=== PATIENT | male | born 1935 | race Caucasian/White ===

== ENCOUNTER 2017-10-11 11:18 | Observation (INO) | payer OTHER, MEDICARE ==
[~2017-10-11] VITALS: Ht 165.1 cm; Wt 75.0 kg
[~2017-10-11 11:18] MED LIST: ALLOPURINOL300 M1 PO; BACTRIM DS 8001 TAB PO; CHILDREN'S ASPI81 M1 PO; CIPROFLOXACIN500 MG PO; COREG12.5 M1 PO; CRANBERRY CONC500 MG PO; DIOVAN80 MG PO; FISH OIL 1,2001 EACH PO; FISH OIL CONC1000 MG PO; FLOMAX(MONOGRA0.4 MG PO; FOLIC ACID0.8 M2 PO; FUROSEMIDE20 MG PO; HYDRALAZINE HCL25 MG PO; IMDUR60 MG PO; LASIX20 M1 PO; LIPITOR40 M1 PO; PLAVIX75 M1 PO
[2017-10-11] MEDS ORDERED: ENTRESTO 49 MG1 EACH PO (11:45)
[2017-10-11] MEDS ORDERED: PREDNISONE5 M1 PO (11:46)
--- NOTE | 2017-10-11 11:46 | ED GENERAL ADULT ---
History of Present Illness General Chief Complaint: Chest Pain Stated Complaint: CHEST PRESSURE, LIGHT HEADEDNESS Source: patient, family Exam Limitations: no limitations Vital Signs & Intake/Output Vital Signs & Intake/Output Vital Signs Date Time Temp Pulse Resp B/P B/P Pulse O2 O2 Flow FiO2 Mean Ox Delivery Rate 10/11 1228 99.0 71 20 126/75 96 Room Air 10/11 1127 98.3 77 15 163/83 98 Room Air Room Air Allergies Coded Allergies: NO KNOWN ALLERGIES (04/10/11) Reconcile Medications Allopurinol 300 MG TABLET 1 TAB PO QPM GOUT (Reported) Aspirin (Children's Aspirin) 81 MG TAB.CHEW 1 TAB PO DAILY HEART HEALTH ( Reported) Atorvastatin Calcium (Lipitor) 40 MG TABLET 1 TAB PO QPM CHOLESTEROL ( Reported) Carvedilol (Coreg) 12.5 MG TABLET 1 TAB PO BID HTN (Reported) Clopidogrel Bisulfate (Plavix) 75 MG TABLET 1 TAB PO DAILY BLOOD THINNER ( Reported) Fish Oil/Dha/Epa (Fish Oil 1,200 MG Fish Oil) 1,200 MG-144 MG-216 MG CAPSULE 1 CAP PO DAILY SUPPLEMENT (Reported) Folic Acid 0.8 MG TABLET 1 TAB PO QPM SUPPLEMENT (Reported) Furosemide (Lasix) 20 MG TABLET 1 TAB PO DAILY WATER RETENTION (Reported) Prednisone 5 MG TABLET 1 TAB PO DAILY PRN GOUT (Reported) Sacubitril/Valsartan (Entresto 49 MG-51 MG Tablet) 49 MG-51 MG TABLET 1 TAB PO BID HEART (Reported) Tamsulosin HCl 0.4 MG CAP.ER.24H 1 CAP PO DAILY PROSTATE (Reported) Triage Note: PT TO ED WITH DAUGHTER FOR C/C OF MID CHEST PRESSURE, WEAKNESS, BILATERAL CALF CRAMPING AND SOB SINCE YESTERDAY. 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 PT REPORTS HE HAS BEEN UNDER A LOT OF STRESS LATELY. Triage Nurses Notes Reviewed? yes HPI: Patient is an 82-year-old male who presents today with chest pain. He has history of AK with PCI and stents, and unfortunately experienced the passing away of his yesterday, understandably causing him much stress and bereavement. He currently states that his chest pain feels similar to his previous AK. Reports like heaviness and dyspnea as well, ECG largely unchanged from previous. Past History Travel History Traveled to [place] past 21 day No Medical History Any Pertinent Medical History? see below for history Neurological: NONE EENT: NONE Cardiovascular: hyperlipidemia, myocardial infarction, CARDIAC STENTS AICD L CHEST WALL History of MRSA: No History of VRE: No History of CDIFF: No Pneumonia Vaccine: 11/08/11 Influenza Vaccine: 11/07/13 Surgical History Surgical History: none Psychosocial History Who do you live with Spouse Services at Home None What is your primary language Mosotho Tobacco Use: Quit >30 days ago Family History Family History, If Any: MOTHER, , Age 60+; Cause: Stroke. FHx: stroke FATHER, , Age 60+; Cause: Stroke. FHx: stroke Relation not specified for: *No pertinent family history Hx Contributory? Yes Review of Systems Review of Systems Constitutional: Reports: see HPI. Denies: fever, malaise, weakness. Cardiovascular: Reports: chest pain. Denies: edema, orthopena, palpitations, peripheral edema, syncope. GI: Denies: abdominal pain, nausea, vomiting. All Other Systems: Reviewed and Negative Physical Exam Physical Exam General Appearance: well developed/nourished, no apparent distress, alert, awake , anxious Comments: HEENT: Inspection of the head reveals a normocephalic cranium with no signs of trauma. Ophtho: Extraocular muscles are intact and pupils are equal and reactive to light bilaterally with no afferent pupillary defect. The sclera are noninjected , and there is no obvious discharge. Neck: The trachea is midline, there is no obvious asymmetry or mass over the thyroid, and there is no midline cervical spine tenderness Respiratory: The lungs are clear and equal to auscultation bilaterally without wheezes, rales, or rhonchi. The patient exhibits no signs of labored breathing. Cardiac: Active chest pain. Regular rhythm and non-tachycardic without appreciable murmurs on auscultation. No obvious JVD. GI: Examination of the abdomen reveals no significant focal tenderness in any of the four quadrants. There is negative Vides's sign, negative McBurney's point tenderness, negative Evan sign, negative Mariscal-De Los Santos sign, and no signs of peritonitis whatsoever on percussion or deep palpation. The skin is intact with no sign of trauma or infection. : Deferred Neuro: The patient is oriented to person, place, time, and situation, with no obvious focal motor deficits. There were no sensory deficits, and the patient exhibit purposeful movement of all 4 extremities. Cranial nerves II through XII are intact, and gait is normal. Behavioral: Bereavement Dermatologic: Dermatologic examination reveals no diffuse rashes or exanthems, no petechiae, no ecchymoses, and no other signs of erythema or infection. Core Measures ACS in differential dx? Yes CVA/TIA Diagnosis: No Sepsis Present: No Sepsis Focused Exam Completed? No Progress Differential Diagnoses I considered the following diagnoses in my evaluation of the patient: STEMI, non -STEMI, acute coronary syndrome, dissection, PE Plan of Care: Orders Procedure Date/time Status TROPONIN LEVEL 10/11 1126 Complete PROTHROMBIN TIME 10/11 1126 Complete D-DIMER 10/11 1126 Complete COMPREHENSIVE METABOLIC PANEL 10/11 1126 Complete CBC WITHOUT DIFFERENTIAL 10/11 1126 Complete EKG 10/11 1124 Active Laboratory Tests 10/11/17 1130: Anion Gap 8, Estimated GFR 58 L, BUN/Creatinine Ratio 15.8, Glucose 138 H, Calcium 9.5, Total Bilirubin 1.0, AST 24, ALT 34, Alkaline Phosphatase 52, Troponin I < 0.01, Total Protein 6.8, Albumin 4.2, Globulin 2.6, Albumin/ Globulin Ratio 1.6, PT 12.6 H, INR 1.15, D-Dimer High Sensitivty < 200, CBC w Diff NO MAN DIFF REQ, RBC 4.39 L, MCV 94.5 H, MCH 32.8 H, MCHC 34.7, RDW 14.8 H, MPV 7.9, Gran % 72.4, Lymphocytes % 17.2 L, Monocytes % 8.6, Eosinophils % 1.5, Basophils % 0.3, Absolute Granulocytes 6.5, Absolute Lymphocytes 1.6, Absolute Monocytes 0.8 H, Absolute Eosinophils 0.1, Absolute Basophils 0 Initial ED EKG: ECG performed at 1127, read by me at 11:30 AM, atrial sensed and ventricularly paced rhythm without ischemic changes, no significant change as compared to Jan 06 2014. Comments: Patient with multiple stents and acute chest pain today after burying his yesterday presented for continued pain. Troponin negative, however given his high-risk status I feel that it is important he be hospitalized. Admitted in stable condition hemodynamically. Departure Departure Time of Disposition: 1406 Disposition: STILL A PATIENT Condition: Stable Clinical Impression Primary Impression: Chest pain Qualifiers: Chest pain type: unspecified Qualified Code: R07.9 - Chest pain, unspecified Referrals: Hieu Jackson MD (PCP/Family) Departure Forms: Customer Survey General Discharge Information Observation Note Spoke With: Rizwan Nieves MD Physician Advisor Notified: SILAS BATES DO Place Patient In: Non-ED OBS Care Area Rationale for Observation: My rational for observation is as follows Patient with multiple stents presents today for chest pain. He had emotional trauma yesterday after the of his , Takatsubo's cardiomyopathy is a possibility as well. His troponin was negative here but I feel that he requires hospitalization for troponin trending, repeat vital signs checks, cardiology consultation, and further monitoring. Critical Care Note Critical Care Note Critical Care Time: non-applicable ED Attending Observation Initial Observation Note: I have seen and personally examined SHERYL POLANCO on 10/11/17 at 1407. I agree with the current emergency department documentation. The disposition (admission or discharge) is uncertain at this time, he needs a period of observation for the following reason(s): The ED Nurse caring for this patient has been personally informed as to what the patient is being observed for.
[2017-10-11 11:49] LABS: ABSOLUTE BASOPHIL COUNT 0 /CUMM (0.0-0.2); ABSOLUTE EOSINOPHIL COUNT 0.1 /CUMM (0.0-0.7); ABSOLUTE GRANULOCYTE CT 6.5 /CUMM (1.4-6.5); ABSOLUTE LYMPH COUNT 1.6 /CUMM (1.2-3.4); ABSOLUTE MONOCYTE COUNT 0.8 /CUMM (0.10-0.60); BASOPHIL % 0.3 % (0.0-2.0); EOSINOPHIL % 1.5 % (0-5); GRANULOCYTE % 72.4 % (42.2-75.2); HEMATOCRIT 41.5 % (42-52); MEAN CORPUSCULAR HGB 32.8 PG (27.0-31.0); MEAN CORPUSCULAR HGB CONC 34.7 G/DL (33.0-37.0); MEAN CORPUSCULAR VOLUME 94.5 FL (80.0-94.0); MEAN PLATELET VOLUME 7.9 FL (7.4-10.4); PLATELET COUNT 237 /CUMM (130-400); RBC DISTRIBUTION WIDTH 14.8 % (11.5-14.5); RED BLOOD CELL CT 4.39 /CUMM (4.70-6.10)
[2017-10-11] MEDS ORDERED: TAMSULOSIN HCL0.4 M1 PO (11:50)
[2017-10-11 11:54] LABS: PT 12.6 SEC (9.4-12.5)
--- NOTE | 2017-10-11 13:49 | RADIOLOGY REPORT ---
EXAMINATION: XR CHEST CLINICAL INFORMATION: Shortness of breath. COMPARISON: 12/28/2013 TECHNIQUE: 2 views of the chest were obtained. FINDINGS: AICD. Normal symmetric lung volumes. No parenchymal consolidation. No pleural effusion. No pneumothorax. Cardiomediastinal silhouette and pulmonary vascularity are within normal limits. No acute osseous abnormalities. IMPRESSION: Unremarkable examination.
--- NOTE | 2017-10-11 14:49 | History & Physical ---
ThaiMegan 10/11/17 1449: General Information and HPI History of Present Illness: Sheryl Villanueva is a 78-year-old male with past medical history of coronary artery disease, myocardial infarction status post stent, pacemaker, hypertension, nephrolithiasis, and gout who came to the ED with complaints of chest pain. Patient notes his two days prior and has been under increasing stress related to the loss. Patient notes he has been having this chest pain for more than 2 months but only recently gave notice to it with it getting progressively worse since yesterday morning. Patient states his pain was 7 out of 10 this morning but is now a 1 out of 10 with no radiating symptoms. Patient states the chest pain is located in the midsternum. Patient also noted bilaeral head pressure and bilateral leg cramps. Patient also reports waking up at night recently due to sensation of difficulty breathing. Patient denied any leg swelling, fevers, chills, and fatigue. Patient occasionally drinks alcohol. Patient is a former smoker, quitting more than 10 years prior. Patient denied any illcit drug usage. Patient follows Dr. Clark (PCP) and Dr. Espinal (Cardiology) Allergies/Medications Allergies: Coded Allergies: NO KNOWN ALLERGIES (04/10/11) Home Med list Allopurinol 300 MG TABLET 1 TAB PO QPM GOUT (Reported) Aspirin (Children's Aspirin) 81 MG TAB.CHEW 1 TAB PO DAILY HEART HEALTH ( Reported) Atorvastatin Calcium (Lipitor) 40 MG TABLET 1 TAB PO QPM CHOLESTEROL ( Reported) Carvedilol (Coreg) 12.5 MG TABLET 1 TAB PO BID HTN (Reported) Clopidogrel Bisulfate (Plavix) 75 MG TABLET 1 TAB PO DAILY BLOOD THINNER ( Reported) Fish Oil/Dha/Epa (Fish Oil 1,200 MG Fish Oil) 1,200 MG-144 MG-216 MG CAPSULE 1 CAP PO DAILY SUPPLEMENT (Reported) Folic Acid 0.8 MG TABLET 1 TAB PO QPM SUPPLEMENT (Reported) Furosemide (Lasix) 20 MG TABLET 1 TAB PO DAILY WATER RETENTION (Reported) Prednisone 5 MG TABLET 1 TAB PO DAILY PRN GOUT (Reported) Sacubitril/Valsartan (Entresto 49 MG-51 MG Tablet) 49 MG-51 MG TABLET 1 TAB PO BID HEART (Reported) Tamsulosin HCl 0.4 MG CAP.ER.24H 1 CAP PO DAILY PROSTATE (Reported) Past History Travel History Traveled to [place] past 21 day No Medical History Neurological: NONE EENT: NONE Cardiovascular: hyperlipidemia, myocardial infarction, CARDIAC STENTS AICD L CHEST WALL History of MRSA: No History of VRE: No History of CDIFF: No Pneumonia Vaccine: 11/08/11 Influenza Vaccine: 11/07/13 Surgical History Surgical History: none Past Family/Social History Family History Relations & Conditions if any MOTHER, , Age 60+; Cause: Stroke. FHx: stroke FATHER, , Age 60+; Cause: Stroke. FHx: stroke Relation not specified for: *No pertinent family history Psychosocial History Services at Home: None Review of Systems Review of Systems Constitutional: Denies: chills, diaphoresis, fever. Cardiovascular: Reports: chest pain, orthopena. Denies: edema, palpitations. Respiratory: Reports: orthopnea. Denies: cough, short of breath. GI: Denies: diarrhea, nausea, vomiting. Musculoskeletal: Denies: back pain, joint pain. Skin: Denies: no symptoms. Neurological/Psychological: Denies: headache, numbness, tingling. Exam & Diagnostic Data Last 24 Hrs of Vital Signs/I&O Vital Signs Date Time Temp Pulse Resp B/P B/P Pulse O2 O2 Flow FiO2 Mean Ox Delivery Rate 10/11 1653 98.3 72 20 136/66 98 Room Air 10/11 1618 98.1 77 15 128/68 98 Room Air Room Air 10/11 1500 66 20 147/78 98 Room Air 10/11 1228 99.0 71 20 126/75 96 Room Air 10/11 1127 98.3 77 15 163/83 98 Room Air Room Air Intake & Output 10/11 1600 10/11 0800 10/11 0000 Intake Total 0 Output Total Balance 0 Intake, Oral 0 Patient 155 lb Weight Weight Reported by Patient Measurement Method Physical Exam General Appearance Alert, Oriented X3, Cooperative, No Acute Distress Skin No Rashes, No Breakdown Skin Temp/Moisture Exam: Warm/Dry HEENT Atraumatic Cardiovascular Regular Rate, Normal S1, Normal S2 Lungs Clear to Auscultation Neurological Normal Speech Extremities No Edema Assessment/Plan Assessment: CXR - Unremarkable examination 78-year-old male with past medical history of coronary artery disease, myocardial infarction status post stent, pacemaker, hypertension, nephrolithiasis, and gout who came to the ED with complaints of chest pain. Etiology in this case with a presentation of chest pain, non-radiating with no nausea/vomiting/diaphoresis that has been progressively worsening over the past few months with associated family stressors playing a role in the setting of negative first troponin level is likely related to an Acute Coronary syndome presentation. We will continue to follow EKG and Troponins and consult cardiology for their recommendations. Labs on admission: WBC 9, hemoglobin 14.4, platelet count 237, sodium 142, potassium 4.2, BUN 19, creatinine 1.2, glucose 138, troponin 0 0.01, d-dimer 200 #Chest pain, rule out ACS -Admitted to telemetry for observation and management of vitals -Every shift vital -Serial troponins and EKG -Echocardiogram -Cardiology consulted (Ismael), patient last saw his principal software architect 3-4 months prior; awaiting recs. -Nitro-Bid 0.5 mg half-inch every 6 prn #Home medications -Continue home medication including Lasix, Entresto, and Tamsulosin. -Will follow BEP in the morning and will restart patient's Allopurinol depending on lab levels FC As Ranked By This Provider Problem List: 1. Chest pain Qualifiers Chest pain type: unspecified Qualified Code: R07.9 - Chest pain, unspecified Core Measures/Misc (10/24) Acute Coronary Syndrome ACS Diagnosis: Yes Congestive Heart Failure Congestive Heart Failure Diagnosis No Cerebrovascular Accident CVA/TIA Diagnosis: No VTE (View Protocol) VTE Risk Factors Acute Medical Illness No Mechanical VTE Prophylaxis d/t N/A MechProphylax Ordered No VTE Pharm Prophylaxis d/t NA PharmProphylax ordered Sepsis (View protocol) Sepsis Present: No If YES complete Sepsis Event Note If YES complete Sepsis Event Note [facility] 1504: General Information and HPI Statement: I have seen and personally examined SHERRISHERYL and documented this H&P. The patient is a 82 year old M who presented with a patient stated chief complaint of []. Core Measures/Misc (10/24) Sepsis (View protocol) If YES complete Sepsis Event Note If YES complete Sepsis Event Note Resident Review Statement Other Findings: 78-year-old male with past medical history of coronary artery disease, myocardial infarction status post stent, pacemaker, hypertension, nephrolithiasis, gout came to [place] [facility] with complaints of chest pain since morning. Apparently patient's 2 days ago and since then patient has been having chest pressure of 7 x 10 in severity with no radiation. Today morning patient felt his chest pressure has worsened and hence he brought himself to the ED. Upon interviewing he said that he has this chest pressure for the past 2 months on and off. He also endorses having shortness of breath on and off with bilateral leg cramps and head pressure. He denies orthopnea, paroxysmal nocturnal dyspnea, dizziness, palpitations, vertigo, diaphoresis, nausea, vomiting, recent change in medication, recent infection recent travel. Patient has been having decreased sleep and on and off epigastric pain for the past few days. Patient saw his principal software architect Dr. Harrison Villalta 3 months ago and got an echocardiogram done. Patient was last admitted for urinary tract infection and syncope in 2013 and during that time he was advised 24 hour Holter monitoring. But the patient does not remember any 24 hour monitor done in the past. Patient was never admitted in any of the hospital in the past 4 years. Past surgical history-coronary artery disease-stent placed Social history-past smoker quit more than 10 years ago Social drinker. No illicit drug use Allergies-none Primary care physician-Dr. clark admission vitals Temperature 99, pulse rate 71, respiratory rate 20, blood pressure 126/75, saturation 96 at room air. Admission labs WBC 9, hemoglobin 14.4, platelet count 237, sodium 142, potassium 4.2, BUN 19, creatinine 1.2, glucose 138, troponin 0 0.01, d-dimer 200 Chest x-ray Unremarkable examination Patient home medication Allopurinol 300 daily Aspirin 81 daily Atorvastatin 40 daily Coreg 12.5 mg twice daily Plavix 75 mg daily Fish oil Folic acid Lasix 20 daily Prednisone 5 mg daily as needed Interesto 49-51 twice daily Tamsulosin Assessment and plan Chest pain-rule out ACS Observation in telemetry Every shift vital Serial troponins and EKG Echocardiogram Cardiology consult Nitro-Bid half-inch every 6 as needed. We will continue all his home medication including Lasix and entresto. Rizwan Nieves MD 10/11/17 1636: Core Measures/Misc (10/24) Sepsis (View protocol) If YES complete Sepsis Event Note If YES complete Sepsis Event Note Attending MD Review Statement Attending Statement Attending MD Statement: examined this patient, discuss w/resident/PA/TRACTOR OPERATOR BATTERY, agreed w/resident/PA/TRACTOR OPERATOR BATTERY, reviewed EMR data (avail) Attending Assessment/Plan: 82M PMH ischemic cardiomyopathy, coronary artery disease s/p NM with PCI and AICD placement in 2010, prior cardiac arrest, arthritis, HTN,HLD, nephrolithiasis presenting with acute onset of left sided chest pressure. Patient has been under a lot of stress, as his yesterday. Today, he experienced a sensation of chest pressure that he described as someone sitting on his chest, left sided, non-radiating, associated with SOB but not with palpitations or lightheadedness. The sensation was dissimilar to when he had his NM. That time was much worse. He was sitting when it started, and it has resolved now. He has no complaints at this time and feels well overall. EKG NSR without acute changes, troponin and labs negative, CXR negative. 1. Chest pain at rest Plan - Observation in telemetry - Serial cardiac enzymes and EKG - Cardiology consult - Echocardiogram - Check TSH - Continue home medications - DVT PPx
[2017-10-11 16:53] VITALS: BP 136/66
[2017-10-11 22:42] VITALS: BP 112/58
[2017-10-12 06:56] VITALS: BP 113/60
--- NOTE | 2017-10-12 07:46 | PN- Housestaff ---
See Addendum Subjective Follow-up For: Chest pain Subjective: Afebrile overnight. Patient is seen and examined this morning. Patient states he feels better today with no complaints of chest pain, shortness of breath, palpitaitons, fevers, chills, and fatigue. Patient otherwise has no new concerns today. Review of Systems Constitutional: Reports: see HPI. Objective Last 24 Hrs of Vital Signs/I&O Vital Signs Date Time Temp Pulse Resp B/P B/P Pulse O2 O2 Flow FiO2 Mean Ox Delivery Rate 10/12 0656 97.0 73 20 113/60 96 Room Air 10/12 0000 95 Room Air 10/11 2242 98.4 77 18 112/58 95 Room Air 10/11 2038 74 112/58 10/11 2038 74 112/58 10/11 1653 98.3 72 20 136/66 98 Room Air 10/11 1618 98.1 77 15 128/68 98 Room Air Room Air 10/11 1500 66 20 147/78 98 Room Air 10/11 1228 99.0 71 20 126/75 96 Room Air 10/11 1127 98.3 77 15 163/83 98 Room Air Room Air Intake & Output 10/12 1600 /05 0800 09/05 0000 Intake Total 120 450 Output Total 350 Balance 120 100 Intake, IV 0 Intake, Oral 120 450 Output, Urine 350 Patient 165 lb Weight Physical Exam General Appearance: Alert, Oriented X3, Cooperative, No Acute Distress Skin: No Rashes, No Breakdown HEENT: Atraumatic Neck: Supple, No JVD Cardiovascular: Regular Rate, Normal S1, Normal S2 Lungs: Clear to Auscultation Neurological: Normal Speech Extremities: No Edema, Normal Pulses Assessment/Plan Assessment: CXR - Unremarkable examination 78-year-old male with past medical history of coronary artery disease, myocardial infarction status post stent, pacemaker, hypertension, nephrolithiasis, and gout who came to the ED with complaints of chest pain. Etiology in this case with a presentation of chest pain, non-radiating with no nausea/vomiting/diaphoresis that has been progressively worsening over the past few months with associated family stressors playing a role in the setting of negative first troponin level is likely related to an Acute Coronary syndome presentation. We will continue to follow EKG and Troponins and consult cardiology for their recommendations. Labs on admission: WBC 9, hemoglobin 14.4, platelet count 237, sodium 142, potassium 4.2, BUN 19, creatinine 1.2, glucose 138, troponin 0 0.01, d-dimer 200 #Chest pain, rule out ACS -Patient is in observation currently to assess and manage his vitals -Every shift vital -Serial troponins and EKG -Echocardiogram -Cardiology consulted (Ismael), patient last saw his integration lead 3-4 months prior; patient will have follow up with cardiology outpatient as they determine pt. currently stable and in no need for additional inpatient cardiac testing; if required, outpatient stress testing will be scheduled with cardiology office; patient to follow up outpatient office cardiology within one week of discharge -Nitro-Bid 0.5 mg half-inch every 6 prn #Home medications -Continue home medication including Lasix, Entresto, and Tamsulosin. -Will follow BEP in the morning and will restart patient's Allopurinol depending on lab levels FC Problem List: 1. Chest pain Pain Ratin Pain Location: na Pain Goal: Remain pain free Pain Plan: prn meds Tomorrow's Labs & Rationales: routine
[2017-10-12 08:39] VITALS: BP 113/60
--- NOTE | 2017-10-12 09:47 | ECHOCARDIOGRAM REPORT ---
SHERYL POLANCO Age: 82 : 1935 Gender: M Exam Date: 10/11/2017 17:14 Exam Location: [address] Ht (in): 65 Wt (lb): 155 BSA: 1.81 BP: 128 / 68 Ordering Physician: Marya Quinones MD Referring Physician: Harrison Guevara MD Technologist: Sarah Hernandez [facility] Room Number: 188 Indications: Chest pain Rhythm: Technical Quality: Fair FINDINGS Left Ventricle Left ventricular cavity size normal. Left ventricular wall thickness mildly increased. There is severe inferior/inferolateral hypokinesis. Left ventricular ejection fraction is estimated at 35- 40 %. Abnormal relaxation filling pattern of the left ventricle for age (stage 1 diastolic dysfunction). Right Ventricle Catheter/pacemaker wire in the right ventricular cavity. Normal right ventricular size and function. Right Atrium Normal right atrial size. Left Atrium Left atrial size at the upper limits of normal. Mitral Valve Mild mitral annular calcification. Mild mitral regurgitation. Aortic Valve Trileaflet aortic valve. No aortic stenosis. Aortic sclerosis. Mild- to-moderate aortic regurgitation. Tricuspid Valve Structurally normal tricuspid valve. Trace tricuspid regurgitation. Unable to estimate the right ventricular systolic pressure. Pulmonic Valve Pulmonic valve not well visualized, grossly normal. Trace pulmonic regurgitation. Pericardium No pericardial effusion. Great Vessels Normal size aortic root. CONCLUSIONS Left ventricular cavity size normal. Left ventricular wall thickness mildly increased. There is severe inferior/inferolateral hypokinesis. Left ventricular ejection fraction is estimated at 35- 40 %. Abnormal relaxation filling pattern of the left ventricle for age (stage 1 diastolic dysfunction). Catheter/pacemaker wire in the right ventricular cavity. Normal right ventricular size and function. Left atrial size at the upper limits of normal. [id number] aortic regurgitation. No pericardial effusion. Fabián Ramsey M.D. (Electronically Signed) Final Date: 12 October 2017 09:42 MEASUREMENTS (Male / Female) Normal Values 2D ECHO LV Diastolic Diameter PLAX 4.2 cm 4.2 - 5.9 / 3.9 - 5.3 cm LV Systolic Diameter PLAX 3.1 cm 2.1 - 4.0 cm LV Fractional Shortening PLAX 26.2 % 25 - 46 % LV Ejection Fraction 2D Teich 51.7 % IVS Diastolic Thickness 1.4 cm LVPW Diastolic Thickness 1.4 cm LV Relative Wall Thickness 0.7 RV Internal Dim ED PLAX 3.3 cm 1.9 - 3.8 cm LVOT Diameter 1.7 cm Aortic Root Diameter 3.0 cm LA Volume 36.0 cm 18 - 58 / 22 - 52 cm Ascending Aorta Diameter 3.6 cm DOPPLER AV Peak Velocity 166.0 cm/s AV Peak Gradient 11.0 mmHg AV Mean Velocity 113.0 cm/s AV Mean Gradient 6.0 mmHg AV Velocity Time Integral 33.3 cm LVOT Peak Velocity 90.2 cm/s LVOT Peak Gradient 3.3 mmHg LVOT Mean Velocity 63.2 cm/s LVOT Mean Gradient 2.0 mmHg LVOT Velocity Time Integral 20.7 cm LVOT Stroke Volume 47.0 cm AV Area Cont Eq vti 1.4 cm AV Area Cont Eq pk 1.2 cm MV Peak Velocity 92.6 cm/s MV Peak Gradient 3.4 mmHg MV Mean Velocity 51.7 cm/s MV Mean Gradient 1.0 mmHg Mitral E Point Velocity 53.8 cm/s Mitral A Point Velocity 82.4 cm/s Mitral E to A Ratio 0.7 MV PHT Velocity 60.8 cm/s MV Deceleration Maury 168.0 cm/s MV Pressure Half Time 108.6 ms MV Area PHT 2.0 cm MV Deceleration Time 378.0 ms TR Peak Velocity 228.0 cm/s TR Peak Gradient 20.8 mmHg Right Atrial Pressure 5.0 mmHg Pulmonary Artery Systolic Pressure 25.8 mmHg Right Ventricular Systolic Pressure 25.8 mmHg PV Peak Velocity 120.0 cm/s PV Peak Gradient 5.8 mmHg PV Mean Velocity 85.5 cm/s PV Mean Gradient 3.0 mmHg PV Velocity Time Integral 23.2 cm LV E' Lateral Velocity 8.9 cm/s Mitral E to LV E' Lateral Ratio 6.1 LV E' Septal Velocity 5.2 cm/s Mitral E to LV E' Septal Ratio 10.4
--- NOTE | 2017-10-12 09:49 | Patient Discharge Instructions ---
Discharge Instructions General Discharge Information You were seen/treated for: Chest pain You had these procedures: CXR ECG Watch for these problems: If you experience any worsening chest pain, palpitations, and/or shortness of breath please follow up with PCP. Special Instructions: Please follow up with PCP within one week. Please follow up with your dial polisher within one week. Depending on your cardiac symptoms the dial polisher will make the determination regarding outpatient stress testing in the future. Please continue to take your home medications. Diet Continue normal diet: Yes Recommended Diet: Regular Activity Full Activity/No Limits: No Activity Self Limited: Yes Acute Coronary Syndrome Inclusion Criteria At DC or during hospital stay patient has or had the following: ACS DIAGNOSIS Yes Discharge Core Measures Meds if any: Prescribed or Continued at Discharge Meds if any: NOT Prescribed or Continued at Discharge Congestive Heart Failure Inclusion Criteria At DC or during hospital stay patient has or had the following: CHF DIAGNOSIS No Discharge Core Measures Meds if any: Prescribed or Continued at Discharge Meds if any: NOT Prescribed or Continued at Discharge Cerebrovascular accident Inclusion Criteria At DC or during hospital stay patient has or had the following: CVA/TIA Diagnosis No Discharge Core Measures Meds if any: Prescribed or Continued at Discharge Meds if any: NOT Prescribed or Continued at Discharge Venous thromboembolism Inclusion Criteria VTE Diagnosis No VTE Type NONE VTE Confirmed by (Test) NONE Discharge Core Measures - Per Current guidelines, there needs to be overlap - treatment for the first 5 days of Warfarin therapy. - If discharged on Warfarin prior to 5 days of - overlap therapy, the patient will need to be - assessed for post discharge needs including - *Post discharge parental anticoagulation - *Warfarin and/or parental anticoagulation education - *Follow up date to check INR post discharge At least 5 days overlap therapy as Inpatient No Meds if any: Prescribed or Continued at Discharge Note: Overlap Therapy is Warfarin and Anticoagulant Meds if any: NOT Prescribed or Continued at Discharge
--- NOTE | 2017-10-12 09:52 | Discharge Summary ---
Visit Information Visit Dates Admission Date: 10/11/17 Discharge Date: 10/12/17 Hospital Course Course Attending Physician: Rizwan Nieves MD Primary Care Physician: Manuel MIRANDA,[place] Hospital Course: 78-year-old male with past medical history of coronary artery disease, myocardial infarction status post stent, pacemaker, hypertension, nephrolithiasis, and gout who came to the ED with complaints of chest pain. Etiology in this case with a presentation of chest pain, non-radiating with no nausea/vomiting/diaphoresis that has been progressively worsening over the past few months with associated family stressors playing a role in the setting of negative first troponin level is likely related to an Acute Coronary syndome presentation. We followed EKG and Troponins and consulted cardiology for their recommendations. Labs on admission: WBC 9, hemoglobin 14.4, platelet count 237, sodium 142, potassium 4.2, BUN 19, creatinine 1.2, glucose 138, troponin 0 0.01, d-dimer 200 #Chest pain, rule out ACS -Patient admitted for chest pain. Acute coronary syndrome ruled out. His 3 sets of troponins were negative. Patient did not have any EKG changes. He was seen by cardiology who suggested to continue the current management and follow- up with him as outpatient. He got an echocardiogram done this admission which showed an ejection fraction of 35-40%. Patient will be sent home with this current home medications. Allergies: Coded Allergies: NO KNOWN ALLERGIES (04/10/11) Significant Procedures: Findings - Left Ventricle Left ventricular cavity size normal. Left ventricular wall thickness mildly increased. There is severe inferior/inferolateral hypokinesis. Left ventricular ejection fraction is estimated at 35- 40 %. Abnormal relaxation filling pattern of the left ventricle for age (stage 1 diastolic dysfunction). Right Ventricle Catheter/pacemaker wire in the right ventricular cavity. Normal right ventricular size and function. Right Atrium Normal right atrial size. Left Atrium Left atrial size at the upper limits of normal. Mitral Valve Mild mitral annular calcification. Mild mitral regurgitation. Aortic Valve Trileaflet aortic valve. No aortic stenosis. Aortic sclerosis. Mild- to-moderate aortic regurgitation. Tricuspid Valve Structurally normal tricuspid valve. Trace tricuspid regurgitation. Unable to estimate the right ventricular systolic pressure. Pulmonic Valve Pulmonic valve not well visualized, grossly normal. Trace pulmonic regurgitation. Pericardium No pericardial effusion. Great Vessels Normal size aortic root. CONCLUSIONS Left ventricular cavity size normal. Left ventricular wall thickness mildly increased. There is severe inferior/inferolateral hypokinesis. Left ventricular ejection fraction is estimated at 35- 40 %. Abnormal relaxation filling pattern of the left ventricle for age (stage 1 diastolic dysfunction). Catheter/pacemaker wire in the right ventricular cavity. Normal right ventricular size and function. Left atrial size at the upper limits of normal. [id number] aortic regurgitation. No pericardial effusion. Fabián Ramsey M.D. (Electronically Signed) Final Date: 12 October 2017 09:42 MEASUREMENTS (Male / Female) Normal Values 2D ECHO LV Diastolic Diameter PLAX 4.2 cm 4.2 - 5.9 / 3.9 - 5.3 cm LV Systolic Diameter PLAX 3.1 cm 2.1 - 4.0 cm LV Fractional Shortening PLAX 26.2 % 25 - 46 % LV Ejection Fraction 2D Teich 51.7 % IVS Diastolic Thickness 1.4 cm LVPW Diastolic Thickness 1.4 cm LV Relative Wall Thickness 0.7 RV Internal Dim ED PLAX 3.3 cm 1.9 - 3.8 cm LVOT Diameter 1.7 cm Aortic Root Diameter 3.0 cm LA Volume 36.0 cm 18 - 58 / 22 - 52 cm Ascending Aorta Diameter 3.6 cm DOPPLER AV Peak Velocity 166.0 cm/s AV Peak Gradient 11.0 mmHg AV Mean Velocity 113.0 cm/s AV Mean Gradient 6.0 mmHg AV Velocity Time Integral 33.3 cm LVOT Peak Velocity 90.2 cm/s LVOT Peak Gradient 3.3 mmHg LVOT Mean Velocity 63.2 cm/s LVOT Mean Gradient 2.0 mmHg LVOT Velocity Time Integral 20.7 cm LVOT Stroke Volume 47.0 cm AV Area Cont Eq vti 1.4 cm AV Area Cont Eq pk 1.2 cm MV Peak Velocity 92.6 cm/s MV Peak Gradient 3.4 mmHg MV Mean Velocity 51.7 cm/s MV Mean Gradient 1.0 mmHg Mitral E Point Velocity 53.8 cm/s Mitral A Point Velocity 82.4 cm/s Mitral E to A Ratio 0.7 MV PHT Velocity 60.8 cm/s MV Deceleration Horry 168.0 cm/s MV Pressure Half Time 108.6 ms MV Area PHT 2.0 cm MV Deceleration Time 378.0 ms TR Peak Velocity 228.0 cm/s TR Peak Gradient 20.8 mmHg Right Atrial Pressure 5.0 mmHg Pulmonary Artery Systolic Pressure 25.8 mmHg Right Ventricular Systolic Pressure 25.8 mmHg PV Peak Velocity 120.0 cm/s PV Peak Gradient 5.8 mmHg PV Mean Velocity 85.5 cm/s PV Mean Gradient 3.0 mmHg PV Velocity Time Integral 23.2 cm LV E' Lateral Velocity 8.9 cm/s Mitral E to LV E' Lateral Ratio 6.1 LV E' Septal Velocity 5.2 cm/s Mitral E to LV E' Septal Ratio 10.4 Disposition Summary Disposition Principal Diagnosis: Chest pain Additional Diagnosis: Hx. of CAD Discharge Disposition: home or self care Discharge Instructions General Discharge Information Code Status: Full Code Patient's Diet: regular Patient's Activity: ad tej Follow-Up Instructions/Appts: Please follow up with PCP within one week. Please follow up with your rigger up within one week. Please continue to take your home medications. Medications at Discharge Discharge Medications: Continue taking these medications: Carvedilol (Coreg) 12.5 MG TABLET 1 Tablet ORAL TWICE DAILY Comments: Last Taken: 10/12/17 Time: 08:40 AM Clopidogrel Bisulfate (Plavix) 75 MG TABLET 1 Tablet ORAL DAILY Comments: Last Taken: 10/11/17 Time: 18:30 Aspirin (Children's Aspirin) 81 MG TAB.CHEW 1 Tablet ORAL DAILY Comments: Last Taken: 10/12/2017 Time: 08:40 AM Atorvastatin Calcium (Lipitor) 40 MG TABLET 1 Tablet ORAL Every night Comments: Last Taken: 10/11/17 Time: 18:30 Allopurinol (Allopurinol) 300 MG TABLET 1 Tablet ORAL Every night Comments: NOT GIVEN IN HOSPITAL. Folic Acid (Folic Acid) 0.8 MG TABLET 1 Tablet ORAL Every night Comments: NOT GIVEN IN HOSPITAL. Furosemide (Lasix) 20 MG TABLET 1 Tablet ORAL DAILY Comments: Last Taken: 10/12/17 Time: 08:40 AM Fish Oil/Dha/Epa (Fish Oil 1,200 MG Fish Oil) 1,200 MG-144 MG-216 MG CAPSULE 1 Capsule ORAL DAILY Comments: NOT GIVEN IN HOSPITAL. Sacubitril/Valsartan (Entresto 49 MG-51 MG Tablet) 49 MG-51 MG TABLET 1 Tablet ORAL TWICE DAILY Comments: Last Taken: 10/12/17 Time: 08:40 AM Prednisone (Prednisone) 5 MG TABLET 1 Tablet ORAL DAILY as needed for GOUT Comments: NOT GIVEN IN HOSPITAL. Tamsulosin HCl (Tamsulosin HCl) 0.4 MG CAP.ER.24H 1 Capsule ORAL DAILY Comments: Last Taken: 10/12/17 Time: 08:40 AM Copies To: Manuel MIRANDA,Hieu Lopez MD Review Statement Documenting Attending: Rizwan Nieves MD
--- NOTE | 2017-10-12 11:05 | Cons- Cardiology ---
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 Ferreira, systolic congestive heart failure, hypertension, and nephrolithiasis who presents to [facility] with a chief complaint of intermittent nonexertional chest discomfort which had worsened over the last 48 hours; he does report noticing some intermittent dyspnea in the last 2 months which is not rapidly increasing and not associated with increased lower extremity edema or orthopnea; he has been under increased emotional stress as his has been ill and recently . He denies any diaphoresis, palpitations, or syncope. He denies slurring of speech, focal weakness, or productive cough. On my interview with him this morning he reports his chest discomfort has resolved. Allergies/Medications Allergies: Coded Allergies: NO KNOWN ALLERGIES (04/10/11) Home Med List: Allopurinol 300 MG TABLET 1 TAB PO QPM GOUT (Reported) Aspirin (Children's Aspirin) 81 MG TAB.CHEW 1 TAB PO DAILY HEART HEALTH ( Reported) Atorvastatin Calcium (Lipitor) 40 MG TABLET 1 TAB PO QPM CHOLESTEROL ( Reported) Carvedilol (Coreg) 12.5 MG TABLET 1 TAB PO BID HTN (Reported) Clopidogrel Bisulfate (Plavix) 75 MG TABLET 1 TAB PO DAILY BLOOD THINNER ( Reported) Fish Oil/Dha/Epa (Fish Oil 1,200 MG Fish Oil) 1,200 MG-144 MG-216 MG CAPSULE 1 CAP PO DAILY SUPPLEMENT (Reported) Folic Acid 0.8 MG TABLET 1 TAB PO QPM SUPPLEMENT (Reported) Furosemide (Lasix) 20 MG TABLET 1 TAB PO DAILY WATER RETENTION (Reported) Prednisone 5 MG TABLET 1 TAB PO DAILY PRN GOUT (Reported) Sacubitril/Valsartan (Entresto 49 MG-51 MG Tablet) 49 MG-51 MG TABLET 1 TAB PO BID HEART (Reported) Tamsulosin HCl 0.4 MG CAP.ER.24H 1 CAP PO DAILY PROSTATE (Reported) Current Medications: Current Medications Sig/Heather Start time Last Medication Dose Route Stop Time Status Admin Acetaminophen 650 MG Q6P PRN 10/11 1530 AC PO Acetaminophen 1,000 MG Q6 PRN 10/11 1530 AC IV Allopurinol 300 MG QPM 10/12 2100 AC PO Aspirin 81 MG DAILY 10/12 899 AC 10/12 PO 0839 Aspirin Buffered 325 MG ONCE ONE 10/11 1200 DC 10/11 PO 10/11 1201 1209 Atorvastatin Calcium 40 MG QPM 10/11 2100 AC 10/11 PO 1834 Carvedilol 12.5 MG BID 10/11 2100 AC 10/12 PO 0839 Clopidogrel Bisulfate 75 MG DAILY 10/13 1800 AC PO Clopidogrel Bisulfate 75 MG DAILY 10/11 1725 DC 10/11 PO 1835 Furosemide 20 MG DAILY 10/12 899 AC 10/12 PO 0839 Furosemide 20 MG DAILY 10/11 1725 DC PO Nitroglycerin 0.5 GM Q6 PRN 10/11 1515 AC TOP Nitroglycerin 0 .STK-MED ONE 10/11 1211 DC SL Nitroglycerin 0.4 MG ONCE ONE 10/11 1200 DC 10/11 SL 10/11 1201 1209 Oxycodone/ 2 TAB Q6P PRN 10/11 1530 AC Acetaminophen PO Sacubitril/Valsartan 1 TAB BID 10/11 2100 AC 10/12 PO 0839 Tamsulosin HCl 0.4 MG DAILY 10/11 2000 AC 10/12 PO 0839 Review of Systems Review of Systems: Review of systems as per HPI. The remainder of a 10 point review of systems was reviewed and was otherwise negative. 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 FHx: stroke FATHER, , Age 60+; Cause: Stroke. FHx: stroke Relation not specified for: *No pertinent family history Psychosocial History Services at Home: None Smoking Status: Former Smoker Exam & Diagnostic Data Vital Signs and I&O Vital Signs Date Time Temp Pulse Resp B/P B/P Pulse O2 O2 Flow FiO2 Mean Ox Delivery Rate 10/12 0839 73 113/60 10/12 0839 73 113/60 10/12 0656 97.0 73 20 113/60 96 Room Air 10/12 0000 95 Room Air 10/11 2242 98.4 77 18 112/58 95 Room Air 10/11 2038 74 112/58 10/11 2038 74 112/58 10/11 1653 98.3 72 20 136/66 98 Room Air 10/11 1618 98.1 77 15 128/68 98 Room Air Room Air 10/11 1500 66 20 147/78 98 Room Air 10/11 1228 99.0 71 20 126/75 96 Room Air 10/11 1127 98.3 77 15 163/83 98 Room Air Room Air Intake & Output 10/12 0800 10/12 0000 10/11 1600 10/11 0800 10/11 0000 Intake Total 120 450 0 Output Total 350 Balance 120 100 0 Intake, IV 0 Intake, Oral 120 450 0 Output, Urine 350 Patient 165 lb 155 lb Weight Weight Reported by Patient Measurement Method Physical Exam: General: no apparent distress. Alert. Eyes: No obvious scleral icterus. HEENT: No jugular venous distention or abnormal jugular venous pulsations. Cardiovascular: Normal intensity S1/S2. AICD noted Respiratory: Lungs clear to auscultation bilaterally. Abdomen: Soft, nontender with no guarding or rebound tenderness. Musculoskeletal: No clubbing or cyanosis noted; no edema Skin: warm Neurologic: No gross focal deficits noted. Labs/[place] Results: Laboratory Tests 10/12 10/11 10/11 0055 1940 1130 Chemistry Sodium (137 - 145 mmol/L) 142 Potassium (3.5 - 5.1 mmol/L) 4.2 Chloride (98 - 107 mmol/L) 106 Carbon Dioxide (22 - 30 mmol/L) 28 Anion Gap (5 - 16) 8 BUN (9 - 20 mg/dL) 19 Creatinine (0.7 - 1.2 mg/dL) 1.2 Estimated GFR (>60 ml/min) 58 L BUN/Creatinine Ratio (7 - 25 %) 15.8 Glucose (65 - 99 mg/dL) 138 H Calcium (8.4 - 10.2 mg/dL) 9.5 Total Bilirubin (0.2 - 1.3 mg/dL) 1.0 AST (17 - 59 U/L) 24 ALT (21 - 72 U/L) 34 Alkaline Phosphatase (< 127 U/L) 52 Troponin I (<0.11 ng/ml) < 0.01 < 0.01 < 0.01 Total Protein (6.3 - 8.2 g/dL) 6.8 Albumin (3.5 - 5.0 g/dL) 4.2 Globulin (1.9 - 4.2 gm/dL) 2.6 Albumin/Globulin Ratio (1.1 - 2.2 %) 1.6 TSH (0.270 - 4.200 uIU/mL) 1.780 Coagulation PT (9.4 - 12.5 SEC) 12.6 H INR (0.90 - 1.17) 1.15 D-Dimer High Sensitivty (0 - 243 ng/ml) < 200 Hematology CBC w Diff NO MAN DIFF REQ WBC (4.8 - 10.8 /CUMM) 9.0 RBC (4.70 - 6.10 /CUMM) 4.39 L Hgb (14.0 - 18.0 G/DL) 14.4 Hct (42 - 52 %) 41.5 L MCV (80.0 - 94.0 FL) 94.5 H MCH (27.0 - 31.0 PG) 32.8 H MCHC (33.0 - 37.0 G/DL) 34.7 RDW (11.5 - 14.5 %) 14.8 H Plt Count (130 - 400 /CUMM) 237 MPV (7.4 - 10.4 FL) 7.9 Gran % (42.2 - 75.2 %) 72.4 Lymphocytes % (20.5 - 51.1 %) 17.2 L Monocytes % (1.7 - 9.3 %) 8.6 Eosinophils % (0 - 5 %) 1.5 Basophils % (0.0 - 2.0 %) 0.3 Absolute Granulocytes (1.4 - 6.5 /CUMM) 6.5 Absolute Lymphocytes (1.2 - 3.4 /CUMM) 1.6 Absolute Monocytes (0.10 - 0.60 /CUMM) 0.8 H Absolute Eosinophils (0.0 - 0.7 /CUMM) 0.1 Absolute Basophils (0.0 - 0.2 /CUMM) 0 Diagnostic Data EKG Results Tracing was personally reviewed and shows atrial sensed ventricular paced rhythm CXR Results No evidence of CHF or pneumonia; ICD noted Other Results Telemetry tracings were personally reviewed and show ventricular paced rhythm Echocardiogram Left ventricular cavity size normal. Left ventricular wall thickness mildly increased. There is severe inferior/inferolateral hypokinesis. Left ventricular ejection fraction is estimated at 35- 40 %. Abnormal relaxation filling pattern of the left ventricle for age (stage 1 diastolic dysfunction). Catheter/pacemaker wire in the right ventricular cavity. Normal right ventricular size and function. Left atrial size at the upper limits of normal. [id number] aortic regurgitation. No pericardial effusion. Fabián Ramsey M.D. (Electronically Signed) Final Date: 12 October 2017 09:42 Assessment/Plan Assessment/Plan 1. Chest discomfort/dyspnea; improving 2. Known history of coronary artery disease with prior myocardial infarction 2010, prior PCI to the right coronary artery, known chronic occlusion of the left circumflex (unchanged on cardiac catheterization 2014) 3. Chronic ischemic cardiomyopathy with known wall motion abnormality 4. Biventricular AICD followed by Dr. Ferreira 5. Chronic systolic congestive heart failure 6. History of hypertension 7. History of nephrolithiasis Patient's serial troponins are within normal limits and echocardiogram shows no change to his ejection fraction or chronic wall motion abnormality. He shows no evidence of acute volume overload. No evidence of acute plaque rupture. No arrhythmias noted on telemetry and he shows normal biventricular pacing. Vital signs are stable. I had an extensive discussion with the patient and he may be a candidate for outpatient ischemic testing in the future depending on symptoms; he may also be a candidate for a trial of antianginal therapy in the future if his symptoms are bothering him going forward. Some of his symptoms may be precipitated by his increased stress as his recently . Cardiac status is currently stable and no additional inpatient cardiac testing is currently required. He should follow-up in our office within 1 week but will return to the hospital via 911 with any new or worsening symptoms. His outpatient cardiac regimen can be continued. Yasmany Ramsey MD [facility] Consult Acknowledgment - Thank you for your consult request.
== END 2017-10-12 13:00 ==
LOC: ERH 11:18 → ERHI 14:38 → 1NO 14:38 → ENRESERV 15:53 → ENTRNSPT 16:19 → EDTRNSPTSTS 16:29 → 1NO 16:38 → CMPTRNSPT 16:51 → 1NO 10-12 13:00
PROVIDERS: Emergency Medicine
DX: R07.9 Chest pain, unspecified (principal); I25.2 Old myocardial infarction; I25.5 Ischemic cardiomyopathy; Z95.810 Presence of automatic (implantable) cardiac defibrillator; I11.0 Hypertensive heart disease with heart failure; I50.22 Chronic systolic (congestive) heart failure; Z87.442 Personal history of urinary calculi; Z79.82 Long term (current) use of aspirin; F17.200 Nicotine dependence, unspecified, uncomplicated; E78.5 Hyperlipidemia, unspecified; Z95.5 Presence of coronary angioplasty implant and graft; M06.9 Rheumatoid arthritis, unspecified; M10.9 Gout, unspecified; Z79.52 Long term (current) use of systemic steroids; Z79.01 Long term (current) use of anticoagulants; H91.90 Unspecified hearing loss, unspecified ear
CPT/HCPCS: 6020; 36415; 36592; 71046; 93005; 93010; 93306; G0378; J0131; J3490